=== PATIENT | male | born 1955 | race Caucasian/White ===

== ENCOUNTER 2019-04-25 16:56 | Inpatient (IN) ==
[2019-04-25] MEDS ORDERED: DEXTROSE 50% 25 GM/50 ML VIAL IV PRN (19:30)
[2019-04-25] MEDS ORDERED: ZALEPLON 5 MG CAPSULE PO PRN (19:30)
[2019-04-25] MEDS ORDERED: GLUCAGON 1 MG VIAL IM PRN (19:30)
[2019-04-25] MEDS ORDERED: ONDANSETRON 4 MG/2 ML VIAL IV PRN (19:30)
[2019-04-25] MEDS ORDERED: SODIUM POLYSTYRENE SULFATE 15 GM/60 ML BOTTLE PO ONE (20:00)
[2019-04-25] MEDS ORDERED: SODIUM BICARB INJ 50 MEQ in SODIUM CHLORIDE 0.45% 1,000 ML IV SCH (20:00)
[2019-04-25] MEDS ORDERED: SODIUM CHLORIDE 0.45% 1,000 ML IV SCH (20:00)
[2019-04-25] MEDS ORDERED: tiZANidine 4 MG TABLET PO PRN (20:05)
[2019-04-25] MEDS: ENOXAPARIN 30 MG/0.3 ML SYRINGE SUBCUT SCH (20:43)
[2019-04-25 21:03] LABS: Albumin 3.7 G/DL (3.4-5.0); Blood Urea Nitrogen 68 MG/DL (7-18); Calcium 7.9 MG/DL (8.5-10.1); Glucose 92 MG/DL (74-106); Osmolality,Calculated 296.5 MOS/KG (273-304)
[2019-04-25] MEDS: INSULIN REGULAR 100 UNIT/ML SUBCUT SCH (21:22)
[2019-04-25] MEDS: cefTRIAXone 1,000 MG in SYRINGE 1 EACH IV SCH (21:40)
[2019-04-26 05:55] LABS: Apearance,Urine CLEAR (Clear); Bacteria,Urine Occasional /HPF (Few); Bilirubin,Urine Negative (Negative); Blood, Urine Moderate mg/dL (Negative); Glucose,Urine (UA) >=500 mg/dL (Negative); Ketones,Urine Negative (Negative); Mucus,Urine Occasional /LPF (Occasional); Nitrite,Urine Negative (Negative); Protein,Urine 30 MG/DL; RBC,Urine 2 /HPF (0-4); Urine Color Straw (Yellow); Urine Specific Gravity 1.003 (1.001-1.035); Urine Urobilinogen < 2.0 EU/DL (0.2-1.0); WBC,Urine 1 /HPF (0-6)
[2019-04-26 06:05] LABS: Protein/Creatinine Ratio,Urine 1.8 RATIO
[2019-04-26] MEDS: METOPROLOL TARTRATE 50 MG TABLET PO SCH (08:43)
[2019-04-26] MEDS: sitaGLIPtin 100 MG TABLET PO SCH (08:44)
[2019-04-26] MEDS: PANTOPRAZOLE 40 MG TABLET PO SCH (08:44)
[2019-04-26] MEDS: DULoxetine 20 MG CAPSULE PO SCH (08:44)
[2019-04-26] MEDS: AMIODARONE 200 MG TABLET PO SCH (08:44)
[2019-04-26] MEDS: CLOPIDOGREL 75 MG TABLET PO SCH (08:44)
[2019-04-26] MEDS: INSULIN REGULAR 100 UNIT/ML SUBCUT SCH ×4 (08:46→21:07)
[2019-04-26] MEDS ORDERED: TAMSULOSIN 0.4 MG CAPSULE PO SCH (09:40)
[2019-04-26 10:49] LABS: Calcium 7.8 MG/DL (8.5-10.1); Osmolality,Calculated 295.7 MOS/KG (273-304)
[2019-04-26] MEDS: SODIUM BICARB INJ 150 MEQ in STERILE WATER INJ 850 ML IV SCH ×2 (13:10→23:10)
[2019-04-26 15:20] LABS: Apearance,Urine CLEAR (Clear); Bacteria,Urine Occasional /HPF (Few); Bilirubin,Urine Negative (Negative); Blood, Urine Small mg/dL (Negative); Glucose,Urine (UA) 150 mg/dL (Negative); Ketones,Urine Negative (Negative); Nitrite,Urine Negative (Negative); Protein,Urine 30 MG/DL; RBC,Urine 1 /HPF (0-4); Squamous Epithelial Cell,Urine Occasional /HPF (0-10); Urine Color Straw (Yellow); Urine Specific Gravity 1.008 (1.001-1.035); Urine Urobilinogen < 2.0 EU/DL (0.2-1.0); WBC,Urine 1 /HPF (0-6)
[2019-04-26] MEDS ORDERED: FINASTERIDE 5 MG TABLET PO SCH (21:00)
[2019-04-26] MEDS: ENOXAPARIN 30 MG/0.3 ML SYRINGE SUBCUT SCH (21:07)
[2019-04-26] MEDS: cefTRIAXone 1,000 MG in SYRINGE 1 EACH IV SCH (21:08)
[2019-04-27 05:36] LABS: Basophils # 0.1 10*3/uL (0.0-0.2); Basophils % 0.8 % (0.0-0.8); Eosinophils # 0.3 10*3/uL (0.0-0.87); Hematocrit 32.7 VOL% (42.0-52.0); Hemoglobin 10.9 GM/DL (14.0-18.0); Immature Granulocytes % 0.4 %; Immature Granulocytes Absolute 0.04 #; Lymphocytes # 0.9 10*3/uL (1.4-4.0); Lymphocytes % 10.3 % (21.2-54.2); Mean Corpuscular HGB Conc 33.3 GM/DL (32-36); Mean Corpuscular Volume 92.1 FL (87-102); Mean Platelet Volume 10.4 FL (9.6-12.0); Monocytes % 8.4 % (1.7-12.7); Neutrophils % 77.1 % (38.7-73.9); Platelet Count 217 T/CUMM (130-400); Red Blood Count 3.55 MC/CUMM (3.8-5.5); Red Cell Distribution Width 14.7 % (9.3-17.3); White Blood Count 9.2 T/CUMM (4-12)
[2019-04-27 05:51] LABS: Calcium 7.5 MG/DL (8.5-10.1); Osmolality,Calculated 300.7 MOS/KG (273-304)
[2019-04-27 05:52] LABS: Albumin 3.2 G/DL (3.4-5.0); Calcium 7.3 MG/DL (8.5-10.1); Osmolality,Calculated 304.4 MOS/KG (273-304)
[2019-04-27] MEDS ORDERED: ALFUZOSIN 10 MG TABLET PO SCH (09:00)
[2019-04-27] MEDS: INSULIN REGULAR 100 UNIT/ML SUBCUT SCH ×2 (09:15→11:45)
[2019-04-27] MEDS: METOPROLOL TARTRATE 50 MG TABLET PO SCH (09:16)
[2019-04-27] MEDS: PANTOPRAZOLE 40 MG TABLET PO SCH (09:16)
[2019-04-27] MEDS: AMIODARONE 200 MG TABLET PO SCH (09:16)
[2019-04-27] MEDS: CLOPIDOGREL 75 MG TABLET PO SCH (09:16)
[2019-04-27] MEDS: sitaGLIPtin 100 MG TABLET PO SCH (09:16)
[2019-04-27] MEDS: DULoxetine 20 MG CAPSULE PO SCH (09:16)
[2019-04-27 12:03] VITALS: BP 124/77
== END 2019-04-27 15:31 | disposition home or self-care (01) | DRG 683 ==
LOC: N.5E → SUATTDRO 19:27
PROVIDERS: ADMIT Internal Medicine; ATTEND Internal Medicine

== ENCOUNTER 2019-05-09 22:07 | Inpatient (IN) ==
[2019-05-09] MEDS ORDERED: ADENOSINE 6 MG/2 ML VIAL ONE (22:29)
[2019-05-09] MEDS ORDERED: SODIUM CHLORIDE 0.9% 1,000 ML IV STA (22:32)
[2019-05-09] MEDS ORDERED: ADENOSINE 6 MG/2 ML VIAL IV STA ×2 (22:33)
[2019-05-09] MEDS ORDERED: DILTIAZEM 50 MG/10 ML VIAL IV STA (22:34)
[2019-05-09] MEDS ORDERED: dilTIAZem Drip 125 MG/125 ML PREMIX IV SCH (23:00)
[2019-05-09 23:11] LABS: Albumin 3.1 G/DL (3.4-5.0); Bilirubin,Total 0.4 MG/DL (0.2-1.0); Calcium 8.6 MG/DL (8.5-10.1); Osmolality,Calculated 277.7 MOS/KG (273-304); Total Protein 6.8 G/DL (6.4-8.3)
[2019-05-09] MEDS ORDERED: MORPHINE 4 MG/1 ML VIAL ONE (23:31)
[2019-05-09] MEDS ORDERED: ONDANSETRON 4 MG/2 ML VIAL ONE (23:31)
[2019-05-09] MEDS ORDERED: MORPHINE 4 MG/1 ML VIAL IV STA (23:36)
[2019-05-09] MEDS ORDERED: ONDANSETRON 4 MG/2 ML VIAL IV STA (23:36)
[2019-05-09 23:54] LABS: Basophils # 0.1 10*3/uL (0.0-0.2); Basophils % 0.3 % (0.0-0.8); Hematocrit 33.4 VOL% (42.0-52.0); Hemoglobin 10.4 GM/DL (14.0-18.0); Immature Granulocytes % 0.9 %; Immature Granulocytes Absolute 0.19 #; Lymphocytes # 0.4 10*3/uL (1.4-4.0); Lymphocytes % 1.7 % (21.2-54.2); Mean Corpuscular HGB Conc 31.1 GM/DL (32-36); Mean Corpuscular Volume 96.5 FL (87-102); Monocytes % 5.3 % (1.7-12.7); Neutrophils % 91.8 % (38.7-73.9); Platelet Count 261 T/CUMM (130-400); Red Blood Count 3.46 MC/CUMM (3.8-5.5); Red Cell Distribution Width 14.6 % (9.3-17.3); White Blood Count 21.6 T/CUMM (4-12)
[2019-05-10] MEDS ORDERED: CEFEPIME 2,000 MG in SODIUM CHLORIDE 0.9% 100 ML IV STA (00:02)
[2019-05-10] MEDS ORDERED: VANCOMYCIN INJ 1,000 MG in SODIUM CHLORIDE 0.9% 250 ML IV STA (00:03)
[2019-05-10 00:19] LABS: Apearance,Urine CLEAR (Clear); Bacteria,Urine Occasional /HPF (Few); Bilirubin,Urine Negative (Negative); Blood, Urine Large mg/dL (Negative); Glucose,Urine (UA) 50 mg/dL (Negative); Ketones,Urine Negative (Negative); Mucus,Urine Occasional /LPF (Occasional); Nitrite,Urine Positive (Negative); Protein,Urine 30 MG/DL; RBC,Urine 7 /HPF (0-4); Squamous Epithelial Cell,Urine Occasional /HPF (0-10); Urine Color Yellow (Yellow); Urine Specific Gravity 1.006 (1.001-1.035); Urine Urobilinogen < 2.0 EU/DL (0.2-1.0); WBC,Urine 82 /HPF (0-6)
[2019-05-10 00:22] LABS: Barbiturates Screen,Urine Negative (Negative); Benzodiazepines Screen,Urine Negative (Negative); Cannabinoid Screen,Urine Negative (Negative); Opiate Screen,Urine Positive (Negative); Phencyclidine Screen,Urine Negative (Negative)
[2019-05-10] MEDS ORDERED: ACETAMINOPHEN 325 MG TABLET PO PRN (01:47)
[2019-05-10] MEDS ORDERED: tiZANidine 4 MG TABLET PO PRN (02:06)
[2019-05-10] MEDS ORDERED: METOPROLOL SUCCINATE XL 25 MG TABLET PO ONE (02:10)
[2019-05-10 02:32] LABS: Acanthocytes Few; Band Neutrophils 5 % (0-10); Lymphocytes 2 % (20-55); Ovalocytes Few; Platelet Estimate Normal; Segmented Neutrophils 86 % (50-85); Total Cells Counted 100
[2019-05-10] MEDS: ONDANSETRON 4 MG/2 ML VIAL IV PRN (03:08)
[2019-05-10] MEDS ORDERED: METOPROLOL TARTRATE 5 MG/5 ML VIAL IV STA (04:10)
[2019-05-10] MEDS ORDERED: METOPROLOL TARTRATE 5 MG/5 ML VIAL IV ONE (04:11)
[2019-05-10] MEDS ORDERED: GLUCAGON 1 MG VIAL IM PRN (05:12)
[2019-05-10] MEDS ORDERED: DEXTROSE 50% 25 GM/50 ML VIAL IV PRN (05:12)
[2019-05-10] MEDS: MORPHINE 4 MG/1 ML VIAL IV PRN (05:28)
[2019-05-10 07:06] LABS: Basophils # 0.1 10*3/uL (0.0-0.2); Basophils % 0.3 % (0.0-0.8); Eosinophils % 0.1 % (0.00-10.9); Hematocrit 32.9 VOL% (42.0-52.0); Hemoglobin 10.6 GM/DL (14.0-18.0); Immature Granulocytes % 0.6 %; Immature Granulocytes Absolute 0.12 #; Lymphocytes # 0.8 10*3/uL (1.4-4.0); Lymphocytes % 3.8 % (21.2-54.2); Mean Corpuscular HGB Conc 32.2 GM/DL (32-36); Mean Corpuscular Volume 94.8 FL (87-102); Mean Platelet Volume 9.7 FL (9.6-12.0); Neutrophils % 87.2 % (38.7-73.9); Platelet Count 286 T/CUMM (130-400); Red Blood Count 3.47 MC/CUMM (3.8-5.5); Red Cell Distribution Width 14.6 % (9.3-17.3); White Blood Count 20.4 T/CUMM (4-12)
[2019-05-10 07:30] LABS: Hypochromasia Slight; Lymphocytes 3 % (20-55); Ovalocytes Slight; Platelet Estimate Adequate; Segmented Neutrophils 92 % (50-85); Total Cells Counted 100
[2019-05-10 07:38] LABS: Calcium 8.8 MG/DL (8.5-10.1); Osmolality,Calculated 280.4 MOS/KG (273-304); Thyroid Stimulating Hormone 2.58 uIU/ml (0.358-3.74)
[2019-05-10] MEDS ORDERED: VANCOMYCIN INJ 500 MG in SODIUM CHLORIDE 0.9% 100 ML IV ONE (08:00)
[2019-05-10] MEDS: INSULIN REGULAR 100 UNIT/ML SUBCUT SCH ×4 (08:05→20:53)
[2019-05-10] MEDS ORDERED: NON-FORMULARY MEDICATION (Omeprazole 40 MG) PO SCH (09:00)
[2019-05-10] MEDS: AMIODARONE 200 MG TABLET PO SCH (09:29)
[2019-05-10] MEDS: FERROUS SULFATE 325 MG TABLET PO SCH (09:29)
[2019-05-10] MEDS: PANTOPRAZOLE 40 MG TABLET PO SCH (09:29)
[2019-05-10] MEDS: DULoxetine 20 MG CAPSULE PO SCH (09:29)
[2019-05-10] MEDS: METOPROLOL TARTRATE 50 MG TABLET PO SCH (09:29)
[2019-05-10] MEDS: CEFEPIME 1,000 MG in SODIUM CHLORIDE 0.9% 100 ML IV SCH (09:29)
[2019-05-10] MEDS: SODIUM BICARBONATE 650 MG TABLET PO SCH ×2 (09:30→20:52)
[2019-05-10] MEDS ORDERED: NYSTATIN POWDER 15 GM BOTTLE TOP SCH (09:30)
[2019-05-10] MEDS: ALFUZOSIN 10 MG TABLET PO SCH (09:30)
[2019-05-10] MEDS ORDERED: METOPROLOL TARTRATE 5 MG/5 ML VIAL IV PRN (09:38)
[2019-05-10] MEDS ORDERED: ENOXAPARIN 100 MG/ML SYRINGE SUBCUT ONE (10:04)
[2019-05-10] MEDS ORDERED: AMIODARONE INJ 450 MG in DEXTROSE 5% 241 ML IV SCH (10:30)
[2019-05-10] MEDS: MAGNESIUM SULF RIDER 1 GM in PREMIX 1 EACH IV ONE ×2 (12:09→14:14)
[2019-05-10] MEDS: CLOPIDOGREL 75 MG TABLET PO SCH (12:09)
[2019-05-10] MEDS: MAGNESIUM GLUCONATE 500 MG TABLET PO SCH (20:53)
[2019-05-10] MEDS: FINASTERIDE 5 MG TABLET PO SCH (20:53)
[2019-05-11] MEDS: CEFEPIME 1,000 MG in SODIUM CHLORIDE 0.9% 100 ML IV SCH ×4 (00:01→22:15)
[2019-05-11] MEDS: ONDANSETRON 4 MG/2 ML VIAL IV PRN ×2 (00:02→11:49)
[2019-05-11] MEDS: MORPHINE 4 MG/1 ML VIAL IV PRN (01:30)
[2019-05-11] MEDS ORDERED: DILTIAZEM 25 MG/5 ML VIAL IV ONE (02:35)
[2019-05-11 05:58] LABS: Basophils # 0.1 10*3/uL (0.0-0.2); Basophils % 0.5 % (0.0-0.8); Eosinophils # 0.7 10*3/uL (0.0-0.87); Eosinophils % 4.6 % (0.00-10.9); Hematocrit 32.2 VOL% (42.0-52.0); Hemoglobin 10.4 GM/DL (14.0-18.0); Immature Granulocytes % 0.6 %; Immature Granulocytes Absolute 0.09 #; Lymphocytes % 5.9 % (21.2-54.2); Mean Corpuscular HGB Conc 32.3 GM/DL (32-36); Mean Corpuscular Volume 95.5 FL (87-102); Monocytes % 7.3 % (1.7-12.7); Neutrophils % 81.1 % (38.7-73.9); Platelet Count 301 T/CUMM (130-400); Red Blood Count 3.37 MC/CUMM (3.8-5.5); Red Cell Distribution Width 14.6 % (9.3-17.3); White Blood Count 16.2 T/CUMM (4-12)
[2019-05-11 06:23] LABS: Calcium 8.6 MG/DL (8.5-10.1); Osmolality,Calculated 282.1 MOS/KG (273-304)
[2019-05-11] MEDS: INSULIN REGULAR 100 UNIT/ML SUBCUT SCH ×4 (07:49→22:15)
[2019-05-11] MEDS ORDERED: VANCOMYCIN INJ 1,500 MG in SODIUM CHLORIDE 0.9% 500 ML IV SCH ×2 (10:00)
[2019-05-11] MEDS: ALFUZOSIN 10 MG TABLET PO SCH (11:00)
[2019-05-11] MEDS ORDERED: MAGNESIUM SULF RIDER 4 GM in PREMIX 1 EACH IV ONE (12:11)
[2019-05-11] MEDS ORDERED: PROPOFOL 200 MG/20 ML VIAL IV ONE (12:47)
[2019-05-11] MEDS ORDERED: ALBUTEROL/IPRATROPIUM 3 ML NEB RESP TX STA (13:32)
[2019-05-11] MEDS: PANTOPRAZOLE 40 MG TABLET PO SCH (13:58)
[2019-05-11] MEDS: MAGNESIUM GLUCONATE 500 MG TABLET PO SCH ×2 (13:58→22:17)
[2019-05-11] MEDS: METOPROLOL TARTRATE 50 MG TABLET PO SCH (13:58)
[2019-05-11] MEDS: DULoxetine 20 MG CAPSULE PO SCH (13:58)
[2019-05-11] MEDS: SODIUM BICARBONATE 650 MG TABLET PO SCH ×2 (13:58→22:14)
[2019-05-11] MEDS: AMIODARONE 200 MG TABLET PO SCH (13:58)
[2019-05-11] MEDS: FERROUS SULFATE 325 MG TABLET PO SCH (13:58)
[2019-05-11] MEDS: CLOPIDOGREL 75 MG TABLET PO SCH (14:20)
[2019-05-11] MEDS: DOCUSATE/SENNA 50-8.6 MG TABLET PO SCH ×2 (14:20→22:15)
[2019-05-11] MEDS: SILODOSIN 8 MG CAPSULE PO SCH (16:33)
[2019-05-11] MEDS: FINASTERIDE 5 MG TABLET PO SCH (22:15)
[2019-05-12 05:24] LABS: Basophils % 0.2 % (0.0-0.8); Eosinophils # 0.9 10*3/uL (0.0-0.87); Eosinophils % 6.7 % (0.00-10.9); Hematocrit 28.2 VOL% (42.0-52.0); Hemoglobin 8.8 GM/DL (14.0-18.0); Immature Granulocytes % 0.5 %; Immature Granulocytes Absolute 0.06 #; Lymphocytes % 7.2 % (21.2-54.2); Mean Corpuscular HGB Conc 31.2 GM/DL (32-36); Mean Corpuscular Volume 97.2 FL (87-102); Mean Platelet Volume 9.4 FL (9.6-12.0); Monocytes % 7.7 % (1.7-12.7); Neutrophils % 77.7 % (38.7-73.9); Platelet Count 260 T/CUMM (130-400); Red Cell Distribution Width 14.7 % (9.3-17.3); White Blood Count 13.2 T/CUMM (4-12)
[2019-05-12 05:52] LABS: Calcium 8.6 MG/DL (8.5-10.1); Osmolality,Calculated 282.1 MOS/KG (273-304)
[2019-05-12] MEDS: PANTOPRAZOLE 40 MG TABLET PO SCH (08:45)
[2019-05-12] MEDS: SODIUM BICARBONATE 650 MG TABLET PO SCH ×2 (08:45→20:21)
[2019-05-12] MEDS: METOPROLOL TARTRATE 50 MG TABLET PO SCH (08:46)
[2019-05-12] MEDS: CLOPIDOGREL 75 MG TABLET PO SCH (08:47)
[2019-05-12] MEDS: MAGNESIUM GLUCONATE 500 MG TABLET PO SCH ×2 (08:47→20:22)
[2019-05-12] MEDS: FERROUS SULFATE 325 MG TABLET PO SCH (08:47)
[2019-05-12] MEDS: AMIODARONE 200 MG TABLET PO SCH (08:47)
[2019-05-12] MEDS: DULoxetine 20 MG CAPSULE PO SCH (08:47)
[2019-05-12] MEDS: DOCUSATE/SENNA 50-8.6 MG TABLET PO SCH ×2 (08:47→20:21)
[2019-05-12] MEDS: CEFEPIME 1,000 MG in SODIUM CHLORIDE 0.9% 100 ML IV SCH (08:48)
[2019-05-12] MEDS: INSULIN REGULAR 100 UNIT/ML SUBCUT SCH ×4 (08:52→21:51)
[2019-05-12] MEDS ORDERED: MAGNESIUM HYDROXIDE SUSP 30 ML UDCUP PO ONE (12:22)
[2019-05-12] MEDS: POLYETHYLENE GLYCOL POWDER 17 GM PACK PO SCH (13:55)
[2019-05-12] MEDS: METOPROLOL SUCCINATE XL 25 MG TABLET PO SCH (15:00)
[2019-05-12] MEDS: ASPIRIN EC 81 MG TABLET PO SCH (15:52)
[2019-05-12] MEDS: CEFUROXIME 500 MG TABLET PO SCH ×2 (15:52→20:21)
[2019-05-12] MEDS: SILODOSIN 8 MG CAPSULE PO SCH (16:49)
[2019-05-12] MEDS: FINASTERIDE 5 MG TABLET PO SCH (20:21)
[2019-05-13 05:51] LABS: Basophils % 0.3 % (0.0-0.8); Eosinophils # 1.1 10*3/uL (0.0-0.87); Eosinophils % 8.1 % (0.00-10.9); Hemoglobin 9.5 GM/DL (14.0-18.0); Immature Granulocytes % 0.9 %; Immature Granulocytes Absolute 0.12 #; Lymphocytes # 1.1 10*3/uL (1.4-4.0); Lymphocytes % 7.9 % (21.2-54.2); Mean Corpuscular HGB Conc 31.7 GM/DL (32-36); Mean Corpuscular Volume 97.1 FL (87-102); Mean Platelet Volume 9.5 FL (9.6-12.0); Monocytes % 6.2 % (1.7-12.7); Neutrophils % 76.6 % (38.7-73.9); Platelet Count 304 T/CUMM (130-400); Red Blood Count 3.09 MC/CUMM (3.8-5.5); Red Cell Distribution Width 15.1 % (9.3-17.3); White Blood Count 13.7 T/CUMM (4-12)
[2019-05-13 06:20] LABS: Calcium 8.6 MG/DL (8.5-10.1); Osmolality,Calculated 289.8 MOS/KG (273-304)
[2019-05-13 06:25] LABS: Ferritin 96.9 ng/ml (26-388)
[2019-05-13 06:30] LABS: Folate 6.7 NG/ML (5.4-24.0)
[2019-05-13] MEDS: INSULIN REGULAR 100 UNIT/ML SUBCUT SCH ×3 (09:08→16:18)
[2019-05-13] MEDS: POLYETHYLENE GLYCOL POWDER 17 GM PACK PO SCH (09:09)
[2019-05-13] MEDS: MAGNESIUM GLUCONATE 500 MG TABLET PO SCH (09:09)
[2019-05-13] MEDS: CLOPIDOGREL 75 MG TABLET PO SCH (09:10)
[2019-05-13] MEDS: AMIODARONE 200 MG TABLET PO SCH (09:10)
[2019-05-13] MEDS: PANTOPRAZOLE 40 MG TABLET PO SCH (09:10)
[2019-05-13] MEDS: SODIUM BICARBONATE 650 MG TABLET PO SCH (09:10)
[2019-05-13] MEDS: CEFUROXIME 500 MG TABLET PO SCH (09:10)
[2019-05-13] MEDS: ASPIRIN EC 81 MG TABLET PO SCH (09:10)
[2019-05-13] MEDS: FERROUS SULFATE 325 MG TABLET PO SCH (09:10)
[2019-05-13] MEDS: DOCUSATE/SENNA 50-8.6 MG TABLET PO SCH (09:10)
[2019-05-13] MEDS: METOPROLOL SUCCINATE XL 25 MG TABLET PO SCH (09:10)
[2019-05-13] MEDS: DULoxetine 20 MG CAPSULE PO SCH (09:10)
[2019-05-13] MEDS ORDERED: SODIUM CHLORIDE 0.9% 1,000 ML IV SCH (09:30)
[2019-05-13 13:10] VITALS: BP 169/93
[2019-05-13] MEDS: SILODOSIN 8 MG CAPSULE PO SCH (16:21)
== END 2019-05-13 17:36 | disposition home or self-care (01) | DRG 690 ==
LOC: EDUNIT# → EDBD → N.ED 22:07 → N.EDINP 05-10 01:47 → N.CC 05-10 05:11 → N.TELEN 05-10 14:29
PROVIDERS: ADMIT Internal Medicine; ATTEND Internal Medicine

== ENCOUNTER 2019-05-30 15:34 | Inpatient (IN) ==
[2019-05-30] MEDS ORDERED: ONDANSETRON 4 MG/2 ML VIAL IV STA (16:11)
[2019-05-30] MEDS ORDERED: ALBUTEROL/IPRATROPIUM 3 ML NEB RESP TX STA (16:14)
[2019-05-30 16:28] LABS: Basophils % 0.2 % (0.0-0.8); Eosinophils % 0.1 % (0.00-10.9); Hematocrit 28.6 VOL% (42.0-52.0); Hemoglobin 9.5 GM/DL (14.0-18.0); Immature Granulocytes % 2.3 %; Immature Granulocytes Absolute 0.41 #; Lymphocytes # 0.2 10*3/uL (1.4-4.0); Lymphocytes % 1.2 % (21.2-54.2); Mean Corpuscular HGB Conc 33.2 GM/DL (32-36); Mean Corpuscular Volume 93.5 FL (87-102); Mean Platelet Volume 10.3 FL (9.6-12.0); Monocytes % 4.3 % (1.7-12.7); Neutrophils % 91.9 % (38.7-73.9); Platelet Count 255 T/CUMM (130-400); Red Blood Count 3.06 MC/CUMM (3.8-5.5); Red Cell Distribution Width 14.1 % (9.3-17.3); White Blood Count 17.8 T/CUMM (4-12)
[2019-05-30 16:38] LABS: INR 1.1; PT Patient Result 12.1 SECS (9.6-12.2); Partial Thromboplastin Time 36.1 SECS (20.8-36.0)
[2019-05-30 16:48] LABS: Band Neutrophils 2 % (0-10); Lymphocytes 3 % (20-55); Macrocytosis 1+; Platelet Estimate Adequate; Polychromasia 1+; Segmented Neutrophils 89 % (50-85); Total Cells Counted 100
[2019-05-30 16:59] LABS: Alanine Aminotransferase 19 U/L (16-61); Albumin 2.4 G/DL (3.4-5.0); Alkaline Phosphatase 65 U/L (45-117); Aspartate Amino Transferase 21 U/L (0-37); Bilirubin,Total < 0.39 MG/DL (0.2-1.0); Blood Urea Nitrogen 82 MG/DL (7-18); Calcium 7.2 MG/DL (8.5-10.1); Glucose 121 MG/DL (74-106); Osmolality,Calculated 276.5 MOS/KG (273-304); Total Protein 6.5 G/DL (6.4-8.3); Troponin I < 0.015 NG/ML (0.00-0.045)
[2019-05-30] MEDS ORDERED: DEXTROSE 50% 25 GM/50 ML VIAL IV STA (17:10)
[2019-05-30] MEDS ORDERED: INSULIN REGULAR 100 UNIT/ML IV STA (17:10)
[2019-05-30] MEDS ORDERED: CALCIUM CHLORIDE 1,000 MG/10 ML SYRINGE IV STA (17:10)
[2019-05-30] MEDS ORDERED: ALBUTEROL NEB SOLN 5 MG/ML 20 ML/BOTTLE CONT NEB STA (17:10)
[2019-05-30] MEDS ORDERED: SODIUM CHLORIDE 0.9% 1,000 ML IV STA (17:12)
[2019-05-30] MEDS ORDERED: VANCOMYCIN INJ 1,000 MG in SODIUM CHLORIDE 0.9% 250 ML IV STA (17:15)
[2019-05-30] MEDS ORDERED: DEXTROSE 50% 25 GM/50 ML SYRINGE IV ONE (17:19)
[2019-05-30] MEDS ORDERED: POLYETHYLENE GLYCOL POWDER 17 GM PACK PO PRN (17:35)
[2019-05-30] MEDS ORDERED: DOCUSATE SODIUM 100 MG CAPSULE PO PRN (17:35)
[2019-05-30] MEDS ORDERED: GLUCAGON 1 MG VIAL IM PRN (17:37)
[2019-05-30] MEDS ORDERED: DEXTROSE 50% 25 GM/50 ML VIAL IV PRN (17:37)
[2019-05-30] MEDS ORDERED: VANCOMYCIN INJ 1,750 MG in SODIUM CHLORIDE 0.9% 500 ML IV PRN (18:00)
[2019-05-30 18:36] LABS: Apearance,Urine CLEAR (Clear); Bacteria,Urine Occasional /HPF (Few); Bilirubin,Urine Negative (Negative); Blood, Urine Moderate mg/dL (Negative); Glucose,Urine (UA) Negative (Negative); Ketones,Urine Negative (Negative); Mucus,Urine Few /LPF (Occasional); Nitrite,Urine Negative (Negative); Protein,Urine Negative; RBC,Urine 1 /HPF (0-4); Squamous Epithelial Cell,Urine Occasional /HPF (0-10); Urine Color Yellow (Yellow); Urine Specific Gravity 1.009 (1.001-1.035); Urine Urobilinogen < 2.0 EU/DL (0.2-1.0); WBC,Urine 30 /HPF (0-6)
[2019-05-30] MEDS: PIPERACILLIN/TAZOBACTAM 3,375 MG in SODIUM CHLORIDE 0.9% 100 ML IV SCH (21:07)
[2019-05-30] MEDS: INSULIN REGULAR 100 UNIT/ML SUBCUT SCH (21:08)
[2019-05-30] MEDS: SODIUM BICARB INJ 50 MEQ in DEXTROSE 5% 1,000 ML IV SCH (21:35)
[2019-05-30] MEDS: FINASTERIDE 5 MG TABLET PO SCH (21:44)
[2019-05-30] MEDS ORDERED: FUROSEMIDE 40 MG/4 ML VIAL IV ONE (21:47)
[2019-05-30 21:54] LABS: Alanine Aminotransferase 18 U/L (16-61); Albumin 2.4 G/DL (3.4-5.0); Alkaline Phosphatase 71 U/L (45-117); Aspartate Amino Transferase 20 U/L (0-37); Bilirubin,Total < 0.39 MG/DL (0.2-1.0); Blood Urea Nitrogen 86 MG/DL (7-18); Calcium 7.7 MG/DL (8.5-10.1); Glucose 135 MG/DL (74-106); Osmolality,Calculated 278.5 MOS/KG (273-304); Total Protein 6.5 G/DL (6.4-8.3)
[2019-05-30] MEDS ORDERED: SODIUM POLYSTYRENE SULFATE 15 GM/60 ML BOTTLE PO ONE (22:00)
[2019-05-30] MEDS ORDERED: CALCIUM GLUCONATE 2,000 MG in SODIUM CHLORIDE 0.9% 100 ML IV PRN (22:30)
[2019-05-31] MEDS ORDERED: VANCOMYCIN INJ 1,250 MG in SODIUM CHLORIDE 0.9% 250 ML IV ONE
[2019-05-31 01:20] LABS: Calcium 7.5 MG/DL (8.5-10.1); Osmolality,Calculated 287.9 MOS/KG (273-304)
[2019-05-31] MEDS ORDERED: SODIUM POLYSTYRENE SULFATE 15 GM/60 ML BOTTLE PO ONE (02:00)
[2019-05-31 04:58] LABS: Basophils % 0.1 % (0.0-0.8); Hematocrit 25.7 VOL% (42.0-52.0); Hemoglobin 8.6 GM/DL (14.0-18.0); Immature Granulocytes % 1.2 %; Immature Granulocytes Absolute 0.23 #; Lymphocytes # 0.3 10*3/uL (1.4-4.0); Lymphocytes % 1.4 % (21.2-54.2); Mean Corpuscular HGB Conc 33.5 GM/DL (32-36); Mean Corpuscular Volume 91.5 FL (87-102); Mean Platelet Volume 10.4 FL (9.6-12.0); Monocytes % 4.9 % (1.7-12.7); Neutrophils % 92.4 % (38.7-73.9); Platelet Count 271 T/CUMM (130-400); Red Blood Count 2.81 MC/CUMM (3.8-5.5); Red Cell Distribution Width 13.8 % (9.3-17.3); White Blood Count 18.9 T/CUMM (4-12)
[2019-05-31 05:29] LABS: Band Neutrophils 3 % (0-10); Hypochromasia 1+; Lymphocytes 1 % (20-55); Segmented Neutrophils 91 % (50-85); Total Cells Counted 100
[2019-05-31 05:30] LABS: Burr Cells Slight; Microcytosis Slight; Ovalocytes Slight; Platelet Estimate Normal
[2019-05-31 05:34] LABS: Calcium 7.2 MG/DL (8.5-10.1); Osmolality,Calculated 289.8 MOS/KG (273-304)
[2019-05-31] MEDS ORDERED: DILTIAZEM 50 MG/10 ML VIAL IV ONE (05:58)
[2019-05-31 05:59] LABS: Albumin 2.3 G/DL (3.4-5.0); Bilirubin,Total 0.4 MG/DL (0.2-1.0); Calcium 7.5 MG/DL (8.5-10.1); Osmolality,Calculated 289.8 MOS/KG (273-304); Total Protein 5.8 G/DL (6.4-8.3)
[2019-05-31] MEDS: PIPERACILLIN/TAZOBACTAM 3,375 MG in SODIUM CHLORIDE 0.9% 100 ML IV SCH ×2 (06:14→17:11)
[2019-05-31 06:25] LABS: Hepatitis B Core IgM Quant 0.18 Index; Hepatitis B Surface Ag Quant < 0.10 Index; Hepatitis B Surface Ag Result Negative (Negative); Hepatitis C Virus Ab Quant 0.06 Index; Hepatitis C Virus Ab Result Negative (Negative)
[2019-05-31] MEDS: INSULIN REGULAR 100 UNIT/ML SUBCUT SCH ×4 (07:45→20:36)
[2019-05-31] MEDS ORDERED: METOPROLOL SUCCINATE XL 25 MG TABLET PO SCH (09:00)
[2019-05-31] MEDS: SODIUM BICARB INJ 50 MEQ in DEXTROSE 5% 1,000 ML IV SCH ×2 (09:12→18:05)
[2019-05-31] MEDS: tiZANidine 4 MG TABLET PO PRN (09:45)
[2019-05-31] MEDS: CLOPIDOGREL 75 MG TABLET PO SCH (09:45)
[2019-05-31] MEDS: DULoxetine 20 MG CAPSULE PO SCH (09:45)
[2019-05-31] MEDS: ASPIRIN EC 81 MG TABLET PO SCH (09:45)
[2019-05-31] MEDS ORDERED: LEVALBUTEROL 1.25 MG/3 ML NEB RESP TX ONE (09:55)
[2019-05-31 10:15] LABS: Osmolality,Calculated 286.7 MOS/KG (273-304)
[2019-05-31] MEDS ORDERED: MAGNESIUM SULF RIDER 2 GM in PREMIX 1 EACH IV PRN (10:46)
[2019-05-31] MEDS ORDERED: DEXTROSE 50% 25 GM/50 ML VIAL IV PRN (13:13)
[2019-05-31] MEDS ORDERED: GLUCAGON 1 MG VIAL IM PRN (13:13)
[2019-05-31] MEDS: SILODOSIN 8 MG CAPSULE PO SCH (17:11)
[2019-05-31] MEDS: FINASTERIDE 5 MG TABLET PO SCH (20:36)
[2019-06-01] MEDS: ALUMINUM/MAGNES/SIMETH MAX STR 30 ML UDCUP PO PRN (00:59)
[2019-06-01] MEDS: tiZANidine 4 MG TABLET PO PRN (03:13)
[2019-06-01] MEDS: SODIUM BICARB INJ 50 MEQ in DEXTROSE 5% 1,000 ML IV SCH ×3 (04:33→18:36)
[2019-06-01 05:40] LABS: Basophils % 0.2 % (0.0-0.8); Eosinophils # 0.4 10*3/uL (0.0-0.87); Eosinophils % 2.9 % (0.00-10.9); Hematocrit 23.8 VOL% (42.0-52.0); Hemoglobin 8.1 GM/DL (14.0-18.0); Immature Granulocytes % 0.5 %; Immature Granulocytes Absolute 0.07 #; Lymphocytes # 0.3 10*3/uL (1.4-4.0); Lymphocytes % 1.8 % (21.2-54.2); Mean Corpuscular Volume 89.8 FL (87-102); Monocytes % 6.4 % (1.7-12.7); Neutrophils % 88.2 % (38.7-73.9); Platelet Count 251 T/CUMM (130-400); Red Blood Count 2.65 MC/CUMM (3.8-5.5); Red Cell Distribution Width 13.4 % (9.3-17.3); White Blood Count 14.6 T/CUMM (4-12)
[2019-06-01] MEDS: PIPERACILLIN/TAZOBACTAM 3,375 MG in SODIUM CHLORIDE 0.9% 100 ML IV SCH ×2 (06:13→18:12)
[2019-06-01 06:25] LABS: Band Neutrophils 1 % (0-10); Eosinophils 5 % (0-10); Lymphocytes 3 % (20-55); Segmented Neutrophils 82 % (50-85); Total Cells Counted 100
[2019-06-01 06:26] LABS: Hypochromasia 1+; Microcytosis Slight; Ovalocytes Slight; Platelet Estimate Adequate
[2019-06-01 07:00] LABS: Alanine Aminotransferase 15 U/L (16-61); Albumin 1.8 G/DL (3.4-5.0); Alkaline Phosphatase 62 U/L (45-117); Aspartate Amino Transferase 11 U/L (0-37); Bilirubin,Total < 0.39 MG/DL (0.2-1.0); Blood Urea Nitrogen 77 MG/DL (7-18); Calcium 7.1 MG/DL (8.5-10.1); Glucose 130 MG/DL (74-106); Osmolality,Calculated 290.4 MOS/KG (273-304); Total Protein 5.2 G/DL (6.4-8.3)
[2019-06-01] MEDS: INSULIN REGULAR 100 UNIT/ML SUBCUT SCH ×4 (07:40→20:57)
[2019-06-01] MEDS: CLOPIDOGREL 75 MG TABLET PO SCH (08:01)
[2019-06-01] MEDS: ASPIRIN EC 81 MG TABLET PO SCH (08:01)
[2019-06-01] MEDS: DULoxetine 20 MG CAPSULE PO SCH (08:01)
[2019-06-01] MEDS: SILODOSIN 8 MG CAPSULE PO SCH (18:37)
[2019-06-01] MEDS: FINASTERIDE 5 MG TABLET PO SCH (20:56)
[2019-06-02] MEDS: ALUMINUM/MAGNES/SIMETH MAX STR 30 ML UDCUP PO PRN ×2 (01:06→21:51)
[2019-06-02] MEDS: PIPERACILLIN/TAZOBACTAM 3,375 MG in SODIUM CHLORIDE 0.9% 100 ML IV SCH ×2 (05:36→21:43)
[2019-06-02 06:13] LABS: Basophils # 0.1 10*3/uL (0.0-0.2); Basophils % 0.4 % (0.0-0.8); Eosinophils # 0.9 10*3/uL (0.0-0.87); Eosinophils % 7.2 % (0.00-10.9); Hematocrit 25.2 VOL% (42.0-52.0); Hemoglobin 8.6 GM/DL (14.0-18.0); Immature Granulocytes % 0.9 %; Immature Granulocytes Absolute 0.11 #; Lymphocytes # 0.5 10*3/uL (1.4-4.0); Lymphocytes % 3.9 % (21.2-54.2); Mean Corpuscular HGB Conc 34.1 GM/DL (32-36); Mean Corpuscular Volume 89.7 FL (87-102); Monocytes % 6.6 % (1.7-12.7); Platelet Count 263 T/CUMM (130-400); Red Blood Count 2.81 MC/CUMM (3.8-5.5); Red Cell Distribution Width 13.6 % (9.3-17.3); White Blood Count 12.2 T/CUMM (4-12)
[2019-06-02 06:31] LABS: Albumin 1.8 G/DL (3.4-5.0); Bilirubin,Total 0.4 MG/DL (0.2-1.0); Calcium 7.3 MG/DL (8.5-10.1); Osmolality,Calculated 293.2 MOS/KG (273-304); Total Protein 5.4 G/DL (6.4-8.3)
[2019-06-02 06:43] LABS: Eosinophils 11 % (0-10); Hypochromasia 1+; Lymphocytes 5 % (20-55); Microcytosis 1+; Platelet Estimate Normal; Polychromasia Few; Segmented Neutrophils 78 % (50-85); Total Cells Counted 100
[2019-06-02] MEDS: ASPIRIN EC 81 MG TABLET PO SCH (09:18)
[2019-06-02] MEDS: AMIODARONE 200 MG TABLET PO SCH (09:18)
[2019-06-02] MEDS: CLOPIDOGREL 75 MG TABLET PO SCH (09:18)
[2019-06-02] MEDS: INSULIN REGULAR 100 UNIT/ML SUBCUT SCH ×4 (09:21→21:45)
[2019-06-02] MEDS: DULoxetine 20 MG CAPSULE PO SCH (09:21)
[2019-06-02] MEDS ORDERED: MAGNESIUM CITRATE 300 ML BOTTLE PO ONE (12:32)
[2019-06-02] MEDS: hydrALAZINE 20 MG/1 ML VIAL IV PRN (13:45)
[2019-06-02] MEDS: hydrALAZINE 10 MG TABLET PO SCH ×2 (16:24→21:44)
[2019-06-02] MEDS: SILODOSIN 8 MG CAPSULE PO SCH (16:24)
[2019-06-02] MEDS: CITRIC ACID/SODIUM CITRATE 30 ML UDCUP PO SCH ×2 (16:26→21:44)
[2019-06-02] MEDS: FINASTERIDE 5 MG TABLET PO SCH (21:44)
[2019-06-02] MEDS: POTASSIUM CHLORIDE 20 MEQ TABLET PO PRN ×2 (21:44→23:21)
[2019-06-02] MEDS: tiZANidine 4 MG TABLET PO PRN (23:21)
[2019-06-03] MEDS: POTASSIUM CHLORIDE 20 MEQ TABLET PO PRN (00:50)
[2019-06-03 05:05] LABS: Basophils % 0.4 % (0.0-0.8); Eosinophils # 0.8 10*3/uL (0.0-0.87); Eosinophils % 7.3 % (0.00-10.9); Hematocrit 25.4 VOL% (42.0-52.0); Hemoglobin 8.7 GM/DL (14.0-18.0); Immature Granulocytes Absolute 0.11 #; Lymphocytes # 0.5 10*3/uL (1.4-4.0); Mean Corpuscular HGB Conc 34.3 GM/DL (32-36); Mean Corpuscular Volume 89.8 FL (87-102); Mean Platelet Volume 10.1 FL (9.6-12.0); Monocytes % 9.2 % (1.7-12.7); Neutrophils % 77.1 % (38.7-73.9); Platelet Count 282 T/CUMM (130-400); Red Blood Count 2.83 MC/CUMM (3.8-5.5); Red Cell Distribution Width 13.6 % (9.3-17.3); White Blood Count 10.6 T/CUMM (4-12)
[2019-06-03 06:01] LABS: Albumin 1.9 G/DL (3.4-5.0); Bilirubin,Total 0.5 MG/DL (0.2-1.0); Calcium 7.6 MG/DL (8.5-10.1); Osmolality,Calculated 297.7 MOS/KG (273-304); Total Protein 5.5 G/DL (6.4-8.3)
[2019-06-03] MEDS: INSULIN REGULAR 100 UNIT/ML SUBCUT SCH ×3 (07:53→16:12)
[2019-06-03] MEDS: ASPIRIN EC 81 MG TABLET PO SCH (09:51)
[2019-06-03] MEDS: CLOPIDOGREL 75 MG TABLET PO SCH (09:51)
[2019-06-03] MEDS: hydrALAZINE 10 MG TABLET PO SCH ×3 (09:51→21:42)
[2019-06-03] MEDS: DULoxetine 20 MG CAPSULE PO SCH (09:51)
[2019-06-03] MEDS: AMIODARONE 200 MG TABLET PO SCH (09:51)
[2019-06-03] MEDS: CITRIC ACID/SODIUM CITRATE 30 ML UDCUP PO SCH ×3 (09:51→21:43)
[2019-06-03] MEDS: ALUMINUM/MAGNES/SIMETH MAX STR 30 ML UDCUP PO PRN ×3 (09:51→21:43)
[2019-06-03] MEDS: PIPERACILLIN/TAZOBACTAM 3,375 MG in SODIUM CHLORIDE 0.9% 100 ML IV SCH ×2 (09:52→21:43)
[2019-06-03] MEDS: SILODOSIN 8 MG CAPSULE PO SCH (16:11)
[2019-06-03] MEDS: hydrALAZINE 20 MG/1 ML VIAL IV PRN (17:57)
[2019-06-03] MEDS: tiZANidine 4 MG TABLET PO PRN (21:42)
[2019-06-03] MEDS: FINASTERIDE 5 MG TABLET PO SCH (21:42)
[2019-06-04] MEDS: INSULIN REGULAR 100 UNIT/ML SUBCUT SCH ×5 (01:46→21:04)
[2019-06-04 08:50] LABS: Basophils % 0.4 % (0.0-0.8); Eosinophils # 0.8 10*3/uL (0.0-0.87); Eosinophils % 7.1 % (0.00-10.9); Hematocrit 27.8 VOL% (42.0-52.0); Hemoglobin 9.2 GM/DL (14.0-18.0); Immature Granulocytes % 3.4 %; Immature Granulocytes Absolute 0.38 #; Lymphocytes # 0.9 10*3/uL (1.4-4.0); Lymphocytes % 7.8 % (21.2-54.2); Mean Corpuscular HGB Conc 33.1 GM/DL (32-36); Mean Corpuscular Volume 90.8 FL (87-102); Mean Platelet Volume 9.7 FL (9.6-12.0); Monocytes % 7.8 % (1.7-12.7); Neutrophils % 73.5 % (38.7-73.9); Platelet Count 321 T/CUMM (130-400); Red Blood Count 3.06 MC/CUMM (3.8-5.5); White Blood Count 11.2 T/CUMM (4-12)
[2019-06-04 09:13] LABS: Calcium 8.3 MG/DL (8.5-10.1); Osmolality,Calculated 293.1 MOS/KG (273-304)
[2019-06-04] MEDS: ASPIRIN EC 81 MG TABLET PO SCH (09:44)
[2019-06-04] MEDS: DULoxetine 20 MG CAPSULE PO SCH (09:44)
[2019-06-04] MEDS: CLOPIDOGREL 75 MG TABLET PO SCH (09:44)
[2019-06-04] MEDS: hydrALAZINE 10 MG TABLET PO SCH ×3 (09:44→20:57)
[2019-06-04] MEDS: PIPERACILLIN/TAZOBACTAM 3,375 MG in SODIUM CHLORIDE 0.9% 100 ML IV SCH ×2 (09:44→20:58)
[2019-06-04] MEDS: CITRIC ACID/SODIUM CITRATE 30 ML UDCUP PO SCH ×3 (09:44→20:58)
[2019-06-04] MEDS: AMIODARONE 200 MG TABLET PO SCH (09:44)
[2019-06-04] MEDS: SILODOSIN 8 MG CAPSULE PO SCH (16:02)
[2019-06-04] MEDS: ALUMINUM/MAGNES/SIMETH MAX STR 30 ML UDCUP PO PRN ×2 (16:04→20:57)
[2019-06-04] MEDS: FINASTERIDE 5 MG TABLET PO SCH (20:57)
[2019-06-04] MEDS: tiZANidine 4 MG TABLET PO PRN (21:00)
[2019-06-05] MEDS: ALUMINUM/MAGNES/SIMETH MAX STR 30 ML UDCUP PO PRN (06:07)
[2019-06-05 06:30] LABS: Basophils # 0.1 10*3/uL (0.0-0.2); Basophils % 0.7 % (0.0-0.8); Eosinophils # 0.9 10*3/uL (0.0-0.87); Eosinophils % 7.3 % (0.00-10.9); Hemoglobin 9.4 GM/DL (14.0-18.0); Immature Granulocytes % 4.3 %; Immature Granulocytes Absolute 0.54 #; Lymphocytes % 8.1 % (21.2-54.2); Mean Corpuscular HGB Conc 32.4 GM/DL (32-36); Mean Corpuscular Volume 93.9 FL (87-102); Mean Platelet Volume 9.4 FL (9.6-12.0); Neutrophils % 72.6 % (38.7-73.9); Platelet Count 352 T/CUMM (130-400); Red Blood Count 3.09 MC/CUMM (3.8-5.5); Red Cell Distribution Width 14.2 % (9.3-17.3); White Blood Count 12.7 T/CUMM (4-12)
[2019-06-05 06:48] LABS: Calcium 8.7 MG/DL (8.5-10.1)
[2019-06-05 06:49] LABS: Band Neutrophils 2 % (0-10); Lymphocytes 9 % (20-55); Segmented Neutrophils 75 % (50-85); Total Cells Counted 100
[2019-06-05 06:50] LABS: Hypochromasia 1+; Platelet Estimate Adequate
[2019-06-05] MEDS: INSULIN REGULAR 100 UNIT/ML SUBCUT SCH ×3 (07:36→15:43)
[2019-06-05] MEDS: CITRIC ACID/SODIUM CITRATE 30 ML UDCUP PO SCH ×2 (08:48→14:45)
[2019-06-05] MEDS: hydrALAZINE 10 MG TABLET PO SCH ×2 (08:49→14:46)
[2019-06-05] MEDS: DULoxetine 20 MG CAPSULE PO SCH (08:49)
[2019-06-05] MEDS: AMIODARONE 200 MG TABLET PO SCH (08:49)
[2019-06-05] MEDS: PIPERACILLIN/TAZOBACTAM 3,375 MG in SODIUM CHLORIDE 0.9% 100 ML IV SCH (08:49)
[2019-06-05] MEDS: ASPIRIN EC 81 MG TABLET PO SCH (08:49)
[2019-06-05] MEDS: CLOPIDOGREL 75 MG TABLET PO SCH (08:49)
[2019-06-05] MEDS ORDERED: SODIUM POLYSTYRENE SULFATE 15 GM/60 ML BOTTLE PO ONE (15:00)
[2019-06-05 15:36] VITALS: BP 146/80
[2019-06-05] MEDS: SILODOSIN 8 MG CAPSULE PO SCH (17:10)
[2019-06-05] MEDS ORDERED: ATORVASTATIN 20 MG TABLET PO SCH (21:00)
== END 2019-06-05 17:54 | disposition home or self-care (01) | DRG 682 ==
LOC: N.ED 15:34 → N.EDINP 17:38 → SUATTDRO 17:38 → N.ICU 20:04 → N.2E 06-01 14:31
PROVIDERS: ADMIT Hospitalist; ATTEND Internal Medicine

== ENCOUNTER 2019-06-14 14:31 | Inpatient (IN) ==
[2019-06-14] MEDS ORDERED: ceFAZolin 1,000 MG in SYRINGE 1 EACH IV ONE (14:57)
[2019-06-14] MEDS ORDERED: ACETAMINOPHEN 325 MG TABLET PO PRN (15:50)
[2019-06-14] MEDS ORDERED: GLUCAGON 1 MG VIAL IM PRN (15:50)
[2019-06-14] MEDS ORDERED: NICOTINE 21 MG/24 HR PATCH TRANSDERM PRN (15:50)
[2019-06-14] MEDS ORDERED: DEXTROSE 50% 25 GM/50 ML VIAL IV PRN (15:50)
[2019-06-14] MEDS ORDERED: BISACODYL 5 MG TABLET PO PRN (15:50)
[2019-06-14] MEDS: INSULIN LISPRO 100 UNIT/ML SUBCUT SCH ×2 (16:02→20:40)
[2019-06-14] MEDS ORDERED: POLYETHYLENE GLYCOL POWDER 17 GM PACK PO PRN (16:14)
[2019-06-14] MEDS ORDERED: DOCUSATE SODIUM 100 MG CAPSULE PO PRN (16:14)
[2019-06-14 16:23] LABS: Basophils # 0.1 10*3/uL (0.0-0.2); Basophils % 1.1 % (0.0-0.8); Eosinophils % 7.7 % (0.00-10.9); Hematocrit 27.7 VOL% (42.0-52.0); Hemoglobin 8.7 GM/DL (14.0-18.0); Immature Granulocytes % 0.6 %; Immature Granulocytes Absolute 0.08 #; Lymphocytes % 7.8 % (21.2-54.2); Mean Corpuscular HGB Conc 31.4 GM/DL (32-36); Mean Corpuscular Volume 95.5 FL (87-102); Mean Platelet Volume 9.5 FL (9.6-12.0); Monocytes % 9.5 % (1.7-12.7); Neutrophils % 73.3 % (38.7-73.9); Platelet Count 543 T/CUMM (130-400); White Blood Count 12.4 T/CUMM (4-12)
[2019-06-14 16:37] LABS: Calcium 7.7 MG/DL (8.5-10.1); Osmolality,Calculated 276.8 MOS/KG (273-304)
[2019-06-14] MEDS: SILODOSIN 8 MG CAPSULE PO SCH (17:06)
[2019-06-14] MEDS: FINASTERIDE 5 MG TABLET PO SCH (20:39)
[2019-06-14] MEDS: SODIUM BICARBONATE 650 MG TABLET PO SCH (20:39)
[2019-06-14] MEDS: ATORVASTATIN 20 MG TABLET PO SCH (20:39)
[2019-06-14] MEDS: ONDANSETRON 4 MG/2 ML VIAL IV PRN (20:45)
[2019-06-15 05:19] LABS: Calcium 7.3 MG/DL (8.5-10.1); Osmolality,Calculated 285.1 MOS/KG (273-304)
[2019-06-15] MEDS ORDERED: ceFAZolin 1,000 MG in SYRINGE 1 EACH IV ONE (06:00)
[2019-06-15] MEDS ORDERED: FAMOTIDINE 20 MG TABLET PO ONE (07:20)
[2019-06-15] MEDS: INSULIN LISPRO 100 UNIT/ML SUBCUT SCH ×4 (07:37→20:26)
[2019-06-15] MEDS ORDERED: BUPIVACAINE 0.25% /EPI 10 ML VIAL ONE (07:58)
[2019-06-15] MEDS ORDERED: HEPARIN 5,000 UNIT/1 ML VIAL ONE (07:58)
[2019-06-15] MEDS ORDERED: LIDOCAINE 1% 20 ML VIAL ONE (07:58)
[2019-06-15] MEDS ORDERED: SODIUM CHLORIDE 0.9% 250 ML IV SCH (08:00)
[2019-06-15] MEDS ORDERED: LACTATED RINGERS 1,000 ML IV SCH (08:00)
[2019-06-15] MEDS ORDERED: PROPOFOL 200 MG/20 ML VIAL IV ONE (09:02)
[2019-06-15] MEDS ORDERED: LIDOCAINE 100 MG/5 ML SYRINGE ONE (09:02)
[2019-06-15] MEDS ORDERED: fentaNYL 100 MCG/2 ML VIAL ONE (09:03)
[2019-06-15] MEDS ORDERED: SODIUM CHLORIDE 0.9% 100 ML IV ONE (09:03)
[2019-06-15] MEDS ORDERED: MIDAZOLAM 2 MG/2 ML VIAL ONE (09:03)
[2019-06-15] MEDS: sitaGLIPtin 25 MG TABLET PO SCH (10:13)
[2019-06-15] MEDS: ASPIRIN EC 81 MG TABLET PO SCH (10:14)
[2019-06-15] MEDS: amLODIPine 5 MG TABLET PO SCH (10:14)
[2019-06-15] MEDS: SODIUM BICARBONATE 650 MG TABLET PO SCH ×2 (10:14→20:25)
[2019-06-15] MEDS: DULoxetine 20 MG CAPSULE PO SCH (10:14)
[2019-06-15] MEDS: AMIODARONE 200 MG TABLET PO SCH (10:14)
[2019-06-15] MEDS: CLOPIDOGREL 75 MG TABLET PO SCH (10:15)
[2019-06-15] MEDS ORDERED: EPOETIN ALFA 2,000 UNIT/1 ML VIAL IV PRN (14:12)
[2019-06-15 14:29] LABS: % Iron Saturation 8.3 % (18-50)
[2019-06-15] MEDS ORDERED: HEPARIN 10,000 UNIT/10 ML VIAL IV SCH (15:00)
[2019-06-15 15:20] LABS: Hepatitis B Surface Ag Quant < 0.10 Index; Hepatitis B Surface Ag Result Negative (Negative); Hepatitis C Virus Ab Quant 0.07 Index; Hepatitis C Virus Ab Result Negative (Negative)
[2019-06-15] MEDS: SILODOSIN 8 MG CAPSULE PO SCH (17:24)
[2019-06-15] MEDS: FINASTERIDE 5 MG TABLET PO SCH (20:25)
[2019-06-15] MEDS: ATORVASTATIN 20 MG TABLET PO SCH (20:25)
[2019-06-15] MEDS: tiZANidine 4 MG TABLET PO PRN (22:00)
[2019-06-16] MEDS: INSULIN LISPRO 100 UNIT/ML SUBCUT SCH ×4 (07:14→20:53)
[2019-06-16] MEDS: DULoxetine 20 MG CAPSULE PO SCH (10:53)
[2019-06-16] MEDS: ASPIRIN EC 81 MG TABLET PO SCH (10:53)
[2019-06-16] MEDS: SODIUM BICARBONATE 650 MG TABLET PO SCH ×2 (10:53→20:54)
[2019-06-16] MEDS: AMIODARONE 200 MG TABLET PO SCH (10:53)
[2019-06-16] MEDS: sitaGLIPtin 25 MG TABLET PO SCH (10:53)
[2019-06-16] MEDS: CLOPIDOGREL 75 MG TABLET PO SCH (10:54)
[2019-06-16] MEDS: amLODIPine 5 MG TABLET PO SCH (10:56)
[2019-06-16] MEDS: FERRIC GLUCONATE COMPLEX 125 MG in SODIUM CHLORIDE 0.9% 100 ML IV SCH (12:15)
[2019-06-16] MEDS: tiZANidine 4 MG TABLET PO PRN ×2 (13:25→22:08)
[2019-06-16] MEDS: SILODOSIN 8 MG CAPSULE PO SCH (16:50)
[2019-06-16] MEDS: FINASTERIDE 5 MG TABLET PO SCH (20:54)
[2019-06-16] MEDS: ATORVASTATIN 20 MG TABLET PO SCH (20:54)
[2019-06-17] MEDS: INSULIN LISPRO 100 UNIT/ML SUBCUT SCH ×4 (07:36→22:45)
[2019-06-17] MEDS: ASPIRIN EC 81 MG TABLET PO SCH (12:38)
[2019-06-17] MEDS: SODIUM BICARBONATE 650 MG TABLET PO SCH ×2 (12:38→20:48)
[2019-06-17] MEDS: CLOPIDOGREL 75 MG TABLET PO SCH (12:38)
[2019-06-17] MEDS: tiZANidine 4 MG TABLET PO PRN (12:39)
[2019-06-17] MEDS: amLODIPine 5 MG TABLET PO SCH (12:39)
[2019-06-17] MEDS: AMIODARONE 200 MG TABLET PO SCH (12:39)
[2019-06-17] MEDS: sitaGLIPtin 25 MG TABLET PO SCH (12:39)
[2019-06-17] MEDS: FERRIC GLUCONATE COMPLEX 125 MG in SODIUM CHLORIDE 0.9% 100 ML IV SCH (13:08)
[2019-06-17] MEDS: DULoxetine 20 MG CAPSULE PO SCH (13:11)
[2019-06-17] MEDS: SILODOSIN 8 MG CAPSULE PO SCH (16:50)
[2019-06-17] MEDS: ATORVASTATIN 20 MG TABLET PO SCH (20:48)
[2019-06-17] MEDS: FINASTERIDE 5 MG TABLET PO SCH (20:48)
[2019-06-18] MEDS: INSULIN LISPRO 100 UNIT/ML SUBCUT SCH ×4 (07:55→22:53)
[2019-06-18] MEDS: FERRIC GLUCONATE COMPLEX 125 MG in SODIUM CHLORIDE 0.9% 100 ML IV SCH (08:18)
[2019-06-18] MEDS: SODIUM BICARBONATE 650 MG TABLET PO SCH ×2 (09:02→22:52)
[2019-06-18] MEDS: DULoxetine 20 MG CAPSULE PO SCH (09:02)
[2019-06-18] MEDS: ASPIRIN EC 81 MG TABLET PO SCH (09:02)
[2019-06-18] MEDS: sitaGLIPtin 25 MG TABLET PO SCH (09:03)
[2019-06-18] MEDS: CLOPIDOGREL 75 MG TABLET PO SCH (09:03)
[2019-06-18] MEDS: AMIODARONE 200 MG TABLET PO SCH (09:03)
[2019-06-18] MEDS: amLODIPine 5 MG TABLET PO SCH (09:03)
[2019-06-18] MEDS: SILODOSIN 8 MG CAPSULE PO SCH (16:27)
[2019-06-18] MEDS: FINASTERIDE 5 MG TABLET PO SCH (22:52)
[2019-06-18] MEDS: ATORVASTATIN 20 MG TABLET PO SCH (22:52)
[2019-06-19] MEDS: ONDANSETRON 4 MG/2 ML VIAL IV PRN (00:41)
[2019-06-19 06:23] LABS: Calcium 8.3 MG/DL (8.5-10.1); Osmolality,Calculated 275.5 MOS/KG (273-304)
[2019-06-19] MEDS: amLODIPine 5 MG TABLET PO SCH (08:39)
[2019-06-19] MEDS: DULoxetine 20 MG CAPSULE PO SCH (08:39)
[2019-06-19] MEDS: sitaGLIPtin 25 MG TABLET PO SCH (08:40)
[2019-06-19] MEDS: ASPIRIN EC 81 MG TABLET PO SCH (08:40)
[2019-06-19] MEDS: SODIUM BICARBONATE 650 MG TABLET PO SCH (08:40)
[2019-06-19] MEDS: AMIODARONE 200 MG TABLET PO SCH (08:40)
[2019-06-19] MEDS: CLOPIDOGREL 75 MG TABLET PO SCH (08:44)
[2019-06-19] MEDS: INSULIN LISPRO 100 UNIT/ML SUBCUT SCH ×3 (09:48→17:11)
[2019-06-19] MEDS: FERRIC GLUCONATE COMPLEX 125 MG in SODIUM CHLORIDE 0.9% 100 ML IV SCH (11:47)
[2019-06-19 11:58] VITALS: BP 119/70
[2019-06-19] MEDS: tiZANidine 4 MG TABLET PO PRN (14:50)
[2019-06-19] MEDS: SILODOSIN 8 MG CAPSULE PO SCH (17:11)
== END 2019-06-19 19:04 | disposition home or self-care (01) | DRG 673 ==
LOC: SUATTDRO 14:54 → N.2E 14:54
PROVIDERS: ADMIT Internal Medicine; ATTEND Internal Medicine

== ENCOUNTER 2019-06-28 15:17 | Observation (INO) ==
[2019-06-28 18:44] LABS: Basophils # 0.1 10*3/uL (0.0-0.2); Basophils % 0.7 % (0.0-0.8); Eosinophils # 0.3 10*3/uL (0.0-0.87); Eosinophils % 1.4 % (0.00-10.9); Hematocrit 30.9 VOL% (42.0-52.0); Hemoglobin 9.5 GM/DL (14.0-18.0); Immature Granulocytes % 1.1 %; Immature Granulocytes Absolute 0.21 #; Lymphocytes # 1.6 10*3/uL (1.4-4.0); Lymphocytes % 8.6 % (21.2-54.2); Mean Corpuscular HGB Conc 30.7 GM/DL (32-36); Mean Corpuscular Volume 95.7 FL (87-102); Mean Platelet Volume 8.7 FL (9.6-12.0); Monocytes % 6.7 % (1.7-12.7); Neutrophils % 81.5 % (38.7-73.9); Platelet Count 518 T/CUMM (130-400); Red Blood Count 3.23 MC/CUMM (3.8-5.5); Red Cell Distribution Width 14.3 % (9.3-17.3)
[2019-06-28 19:02] LABS: Albumin 3.1 G/DL (3.4-5.0); Bilirubin,Total 0.5 MG/DL (0.2-1.0); Calcium 8.8 MG/DL (8.5-10.1); Osmolality,Calculated 276.1 MOS/KG (273-304); Total Protein 7.3 G/DL (6.4-8.3)
[2019-06-28 19:24] LABS: Apearance,Urine Slightly Hazy (Clear); Bacteria,Urine Occasional /HPF (Few); Bilirubin,Urine Negative (Negative); Blood, Urine Small mg/dL (Negative); Glucose,Urine (UA) Negative (Negative); Ketones,Urine Negative (Negative); Nitrite,Urine Negative (Negative); Protein,Urine Negative; RBC,Urine 15 /HPF (0-4); Squamous Epithelial Cell,Urine Occasional /HPF (0-10); Urine Color Yellow (Yellow); Urine Specific Gravity 1.004 (1.001-1.035); Urine Urobilinogen < 2.0 EU/DL (0.2-1.0); WBC,Urine 240 /HPF (0-6)
[2019-06-28] MEDS ORDERED: PIPERACILLIN/TAZOBACTAM 3,375 MG in SODIUM CHLORIDE 0.9% 100 ML IV STA (19:30)
[2019-06-28] MEDS ORDERED: SODIUM CHLORIDE 0.9% 1,000 ML IV STA (19:30)
[2019-06-28] MEDS ORDERED: ONDANSETRON 4 MG/2 ML VIAL IV ONE (20:47)
[2019-06-28] MEDS ORDERED: MORPHINE 4 MG/1 ML VIAL IV STA (20:47)
[2019-06-28] MEDS ORDERED: LACTULOSE 20 GM/30 ML UDCUP ONE (21:54)
[2019-06-28] MEDS ORDERED: LACTULOSE 20 GM/30 ML UDCUP PO STA (21:55)
[2019-06-28] MEDS ORDERED: ONDANSETRON 4 MG/2 ML VIAL IV PRN (22:15)
[2019-06-28] MEDS ORDERED: GLUCAGON 1 MG VIAL IM PRN (22:15)
[2019-06-28] MEDS ORDERED: DEXTROSE 50% 25 GM/50 ML VIAL IV PRN (22:15)
[2019-06-28] MEDS: MORPHINE 4 MG/1 ML VIAL IV PRN (23:27)
[2019-06-28] MEDS: ENOXAPARIN 30 MG/0.3 ML SYRINGE SUBCUT SCH (23:28)
[2019-06-29] MEDS: MORPHINE 4 MG/1 ML VIAL IV PRN ×3 (05:23→20:12)
[2019-06-29 06:43] LABS: Calcium 8.1 MG/DL (8.5-10.1); Osmolality,Calculated 273.4 MOS/KG (273-304)
[2019-06-29 07:56] LABS: Basophils # 0.1 10*3/uL (0.0-0.2); Basophils % 0.8 % (0.0-0.8); Eosinophils # 0.5 10*3/uL (0.0-0.87); Eosinophils % 3.1 % (0.00-10.9); Hemoglobin 8.9 GM/DL (14.0-18.0); Immature Granulocytes % 0.8 %; Immature Granulocytes Absolute 0.13 #; Lymphocytes # 1.4 10*3/uL (1.4-4.0); Lymphocytes % 8.3 % (21.2-54.2); Mean Corpuscular HGB Conc 30.7 GM/DL (32-36); Mean Corpuscular Volume 97.3 FL (87-102); Mean Platelet Volume 8.8 FL (9.6-12.0); Monocytes % 5.5 % (1.7-12.7); Neutrophils % 81.5 % (38.7-73.9); Platelet Count 498 T/CUMM (130-400); Red Blood Count 2.98 MC/CUMM (3.8-5.5); Red Cell Distribution Width 14.6 % (9.3-17.3)
[2019-06-29] MEDS ORDERED: MAGNESIUM CITRATE 300 ML BOTTLE PO ONE (09:00)
[2019-06-29] MEDS: cefTRIAXone 2,000 MG in SYRINGE 1 EACH IV SCH (09:23)
[2019-06-29] MEDS: LACTULOSE 20 GM/30 ML UDCUP PO PRN ×2 (09:23→22:03)
[2019-06-29] MEDS: INSULIN REGULAR 100 UNIT/ML SUBCUT SCH ×4 (09:26→21:57)
[2019-06-29] MEDS ORDERED: EPOETIN ALFA 10,000 UNIT/1 ML VIAL IV PRN (17:59)
[2019-06-29] MEDS: ENOXAPARIN 30 MG/0.3 ML SYRINGE SUBCUT SCH (22:00)
[2019-06-30] MEDS ORDERED: HEPARIN 10,000 UNIT/10 ML VIAL IV SCH (07:30)
[2019-06-30] MEDS: INSULIN REGULAR 100 UNIT/ML SUBCUT SCH ×2 (07:45→11:32)
[2019-06-30] MEDS: MORPHINE 4 MG/1 ML VIAL IV PRN (08:27)
[2019-06-30] MEDS: cefTRIAXone 2,000 MG in SYRINGE 1 EACH IV SCH (08:31)
[2019-06-30 11:52] VITALS: BP 120/70
== END 2019-06-30 15:47 | disposition home or self-care (01) ==
LOC: N.ED 15:17 → N.EDINP 22:15 → INTOOBSV 22:15 → N.5E 22:52
PROVIDERS: ADMIT Internal Medicine Geriatric Medicine; ATTEND Internal Medicine Geriatric Medicine